=== PATIENT | male | born 1955 ===

== ENCOUNTER 2017-01-25 06:26 | Emergency (ER) | payer SELFPAY ==
[2017-01-25] MEDS ORDERED: ONDANSETRON HCL 4 MG/2 ML VIAL ONE ×2 (06:48→08:40)
[2017-01-25] MEDS ORDERED: NITROGLYCERIN 0.4 MG TAB.SUBL SUBLINGUAL ONE (06:48)
[2017-01-25 06:55] LABS: BASOPHIL# 0.1 X 10^3uL (0.0-0.1); BASOPHILS 0.6 % (0.0-2.0); EOSINOPHILS 2.1 % (0.0-6.0); EOSINOPHILS# 0.3 X 10^3uL (0.0-0.4); HEMOGLOBIN 14.9 g/dL (14.0-18.0); LYMPHOCYTES 14.3 % (20.0-40.0); LYMPHOCYTES# 1.7 X 10^3uL (0.8-3.8); MEAN CELL VOLUME 84.5 fL (80.0-100.0); MEAN CORPUS. HGB CONCENTRATION 34.6 g/dL (32.0-36.0); MEAN CORPUSCULAR HEMOGLOBIN 29.2 pg (29.0-35.0); MEAN PLATELET VOLUME 8.9 fL (7.4-10.4); MONOCYTES# 0.9 X 10^3uL (0.2-1.0); NEUTROPHILS# 9.1 X 10^3uL (2.6-6.7); PLATELET COUNT 239 X 10^3uL (130-440); RED BLOOD COUNT 5.09 X 10^6uL (4.20-6.10); RED CELL DISTRIBUTION WIDTH 12.9 % (11.5-14.5); WHITE BLOOD COUNT 12.1 X 10^3uL (3.9-10.7)
[2017-01-25 07:08] LABS: ALBUMIN 3.9 g/dL (3.5-5.0); ALKALINE PHOSPHATASE 58 U/L (38-126); ALT 36 U/L (21-72); AST 24 U/L (17-59); BILIRUBIN, TOTAL 0.4 mg/dL (0.2-1.3); BLOOD UREA NITROGEN 16 mg/dL (9-20); CALCIUM 8.7 mg/dL (8.4-10.2); CHLORIDE 109 mmol/L (98-107); CREATININE 0.9 mg/dL (0.7-1.3); EST GLOMERULAR FILTRATION RATE > 60 mL/min; GLUCOSE 115 mg/dL (70-100); LIPASE 76 U/L (23-300); POTASSIUM 3.7 mmol/L (3.5-5.1); SODIUM 140 mmol/L (137-145)
[2017-01-25 07:20] LABS: TROPONIN I < 0.012 ng/mL (0.00-0.034)
[2017-01-25] MEDS ORDERED: MORPHINE SULFATE 2 MG/ML SYR ONE (07:23)
[2017-01-25] MEDS ORDERED: MORPHINE SULFATE 4 MG/ML SYR ONE (08:40)
[2017-01-25] MEDS ORDERED: NITROGLYCERIN OINT 1 GM PACKET ONE (08:53)
[2017-01-25] MEDS ORDERED: NITROGLYCERIN 250 ML IV ONE (09:18)
--- NOTE | 2017-01-25 11:14 | US REPORT ---
EXAM:US ADB NOLAN INDICATION: Abdominal pain. Right upper quadrant discomfort. COMPARISON:None TECHNIQUE:A right upper quadrant scan was performed. FINDINGS: The liver appears normal in size and echogenicity and there is no intrahepatic ductal dilat ation. The common hepatic duct measures 4 mm and the common bile duct measures 5 mm. The gallbladder wall is mildly thickened at up to 5 mm. There is a 10 to 11 mm diameter stone in the region of the ga llbladder neck on initial images, but this eventually moved into the fundus with change in position. The patient does exhibit focal tenderness over the gallbladder fossa. There is no pericholecystic flu id. Visualized portions of the pancreas and inferior vena cava are unremarkable and the aorta is normal i n caliber throughout. The right kidney and aorta were not imaged. There is no ascites. Portal vein fl ow is patent and towards the liver. IMPRESSION: 1. Cholelithiasis, with the stone initially in the gallbladder neck but ultimately mobile with change in patient position. Mild wall thickening and sonographic Naik's sign, however, suggest the presen ce of acute cholecystitis. This could be confirmed with nuclear medicine HIDA scan. 2. Normal liver and bile ducts. This report was discussed with Dr. Willett of the [facility] emergency department on 01/25/2017 at 11:00 AM. Final Electronic Signature: This report was electronically signed by Nj Frye MD on 01/25/2017 11:11 AM. sabine /
--- NOTE | 2017-01-25 11:55 | ER NURSING DOCUMENTATION ---
Nurse's Notes [facility] Name:Gareth Santiago Age:61 yrs Sex:Male :1955 Arrival Date:01/25/2017 Time:06:26 BedTrauma C Private MD: Diagnosis:Abdominal Pain, Right Upper Quadrant;Chest Pain Presentation: 01/25 06:50 Presenting complaint: Patient states: CP that radiates to RUQ. Awoke from sleep. Denies mk4 SOB. Transition of care: Home. Asprin Given Given in ED 324 mg po. 06:50 Method Of Arrival: Walk In [facility] 06:50 Acuity: JOSE RAFAEL 3 4 11:49 AIR CAT ACTIVATION no other Not indicated. lp Triage Assessment: 06:52 General: Appears distressed, uncomfortable, Behavior is cooperative. Pain: Complains of mk4 pain in diaphragm and xyphoid area EENT: No deficits noted. Neuro: No deficits noted. Cardiovascular: Capillary refill < 3 seconds Heart tones present Pulses are all present. Reports Nausea Rhythm is regular Chest pain is described as mild, quality is heaviness, pressure, squeezing. Respiratory: Airway is patent Respiratory effort is even, unlabored, Respiratory pattern is regular, symmetrical, Breath sounds are clear. GI: No deficits noted. : No deficits noted. Derm: No deficits noted. Musculoskeletal: No deficits noted. Historical: - Allergies: Codeine; - Home Meds: 1. Zocor 5 mg oral tab Unknown once daily - Tetanus: < 10 years. - Immunization history: Pneumococcal vaccine status is unknown. - Ebola Screening: : No symptoms or risks identified at this time. . - Social history: Smoking status: Patient states was never smoker of tobacco. Screenin:14 Infectious Disease Risk None. Abuse screen: Unable to Obtain. Nutritional screening: No mk4 deficits noted. Assessment: 07:14 See Triage Assessment done by same RN. [facility] 07:50 General: Appears uncomfortable, Behavior is appropriate for age. Pain: Complains of lp pain in anterior aspect of left upper chest, diaphragm, right breast and left breast Pain does not radiate. Pain At worst was 7 out of 10 on a pain scale. Level that is acceptable is 3 out of 10 on a pain scale. Quality of pain is described as pressure, Pain began suddenly. Neuro: No deficits noted. EENT: No deficits noted. Cardiovascular: Capillary refill < 3 seconds Heart tones S1 S2 Pulses are all present. Reports chest pressure Denies lightheadedness, syncope, Rhythm is sinus rhythm Chest pain is described as diffuse, quality is pressure, is located in right left anterior chest wall has moved or radiated since the onset. Unable to elicit due to patient's condition. Respiratory: Breath sounds are clear bilaterally. GI: Abdomen is flat, non- distended Bowel sounds present X 4 quads. : No deficits noted. Derm: Skin is intact, is healthy with good turgor, Skin is dry, Skin is pink, warm & dry. Musculoskeletal: No deficits noted. Vital Signs: 06:30 BP 149 / 85; Pulse 63; Resp 16; Pulse Ox 96% on 2 lpm NC; lp 06:56 BP 126 / 80; Pulse 61; Resp 12; Temp 98.7; Pulse Ox 91% on R/A; Weight 74.84 kg; Height mk4 5 ft. 11 in. (180.34 cm); Pain 5/10; 07:00 BP 109 / 57; Pulse 63; Resp 16; Pulse Ox 94% on 2 lpm NC; lp 07:25 BP 109 / 57; Pulse 59; Resp 14; Pulse Ox 94% ; Pain 4/10; mk4 08:04 BP 110 / 58; Pulse 65; Resp 16; Pulse Ox 98% on 2 lpm NC; lp 08:38 BP 101 / 54; Pulse 67; Resp 14; Pulse Ox 93% on 2 lpm NC; lp 09:00 BP 112 / 50; Pulse 64; Resp 16; Pulse Ox 92% on 2 lpm NC; lp 09:17 BP 107 / 61; Pulse 73; Resp 16; Pulse Ox 95% on 2 lpm NC; lp 09:20 BP 102 / 55; Pulse 80; Resp 16; Pulse Ox 96% on 2 lpm NC; lp 09:25 BP 94 / 50; Pulse 69; Resp 16; Pulse Ox 95% on 2 lpm NC; lp 09:30 BP 111 / 59; Pulse 65; Resp 16; Pulse Ox 94% on 2 lpm NC; lp 09:35 BP 107 / 60; Pulse 62; Resp 16; Pulse Ox 95% on 2 lpm NC; lp 09:40 BP 118 / 57; Pulse 59; Resp 16; Temp 97.7(O); Pulse Ox 95% on 2 lpm NC; lp 09:43 BP 107 / 57; Pulse 55; Pulse Ox 94% on 2 lpm NC; lp 09:45 BP 111 / 58; Pulse 68; Resp 16; Pulse Ox 93% on 2 lpm NC; lp 09:50 BP 111 / 52; Pulse 68; Resp 16; Pulse Ox 93% on 2 lpm NC; lp 09:53 BP 98 / 53; Pulse 65; Pulse Ox 93% on 2 lpm NC; lp 10:25 BP 96 / 46; Pulse 67; Resp 16; Pulse Ox 93% on 2 lpm NC; lp 10:45 BP 120 / 45; Pulse 66; Resp 16; Pulse Ox 90% on R/A; lp 11:00 BP 99 / 47; Pulse 64; Resp 16; Pulse Ox 93% on R/A; lp 11:00 BP 107 / 56; Pulse 70; Resp 16; Pulse Ox 94% on R/A; lp 06:56 Body Mass Index 23.01 (74.84 kg, 180.34 cm) mk4 09:25 Nitro gtt started 5mcg/min lp 09:35 Nitro gtt 10 mcg/min incrased lp 09:43 Nitro gtt increased to 15mcg/min lp ED Course: 06:27 Patient arrived in ED. ama 06:41 Jesse Willett MD is Attending Physician. tl1 06:48 Port Xray Completed. ms 06:49 Shelia Smith is Primary Nurse. mk4 06:51 Triage completed. mk4 07:14 Bed in low position Call Light in Reach Gowned Side rails up x2. Family accompanied 4 patient. EKG done per protocol. Labs ordered per protocol. X-ray done. 07:14 Valuables Given to family. Cardiac Monitoring On for Nurse Monitoring only. Pulse Ox - mk4 RN Monitoring Only NIBP On - RN Monitoring Only. Noise minimized. Lights dimmed. Verbal reassurance given. Warm blanket given. 07:15 Labs drawn. EKG done. (by ED staff). Reviewed by Jesse Willett MD Portable x-ray done. mk4 Inserted peripheral IV: 20 gauge in right hand. Oxygen Oxygen administration via nasal cannula @ 2L/min. 09:10 Inserted peripheral IV: 20 gauge in left forearm. lp 10:09 EKG attached lp Administered Medications: 06:58 Drug: Aspirin Chewable Tablet 324 mg; Route: PO; mk4 07:13 Follow up: Response: No adverse reaction mk4 06:58 Drug: NS 0.9% 500 ml; Volume: 500 ml; Route: IV; Rate: bolus; Infused Over: 45 mins; mk4 Site: right hand; Delivery: [place] Tubing; 07:58 Follow up: IV Status: Completed infusion; IV Intake: 500ml lp 07:12 Drug: Zofran 4 mg; Route: IVP; Rate: 4 bolus; Infused Over: 2 mins; Site: right hand; mk4 07:24 Follow up: Response: No adverse reaction; Nausea is decreased mk4 07:12 Drug: Nitroglycerin 0.4 mg; {Note: Administered third dose at 0810.} Route: Sublingual; lp 07:25 Follow up: BP 109 / 57; Pulse 59 bpm; Resp 14 bpm; Pulse Ox 94% ; Pain 4/10 Adult mk4 08:20 Follow up: Response: Pain is decreased lp 07:20 Drug: morphine 2 mg; Route: IVP; Site: left antecubital; lp 08:00 Follow up: Response: Pain is decreased lp 08:40 Drug: Ondansetron 4 mg; Route: IVP; Infused Over: 2 mins; Site: right antecubital; lp 08:54 Follow up: Response: No adverse reaction; No change in condition; Nausea is decreased lp 08:44 Drug: Nitroglycerin 0.4 mg; Route: Sublingual; lp 08:55 Follow up: Response: Pain is decreased lp 08:44 Drug: Nitro-Bid Ointment 2 % 1 inches; Route: Transdermal; Site: anterior chest wall; lp 09:20 Follow up: Response: No adverse reaction; No change in condition lp 08:53 Drug: morphine 4 mg; Route: IVP; Infused Over: 2 mins; Site: right antecubital; lp 08:54 Follow up: Response: No adverse reaction; No change in condition; Pain is decreased lp 09:25 Drug: Nitro Drip - (Nitroglycerin 25 mg, D5W 250 ml); Route: IV; Rate: 5 mcg/min; Site: lp right antecubital; Delivery: Nitro tubing; 09:25 Follow up: Rate change 5 mcg/min lp 09:32 Drug: Nitro Drip - (Nitroglycerin 25 mg, D5W 250 ml); {Note: Rate titrated to lp 10mcg/min.} Route: IV; Rate: 10 mcg/min; Site: right antecubital; 09:35 Follow up: Rate change 10 mcg/min lp 09:42 Drug: Nitro Drip - (Nitroglycerin 25 mg, D5W 250 ml); Route: IV; Rate: 15 mcg/min; lp Site: right antecubital; 09:43 Follow up: Rate change 15 mcg/min lp 10:42 Follow up: Response: No adverse reaction; Pain is decreased; IV Status: Infusion lp discontinued 10:42 Follow up: IV Status: Infusion discontinued; IV Intake: 25ml lp Intake: 07:58 IV: 500ml; Total: 500ml. lp 10:42 IV: 25ml; Total: 525ml. lp Outcome: 11:00 Discharge ordered by . tl1 11:49 Discharged to home ambulatory. lp 11:49 Condition: improved 11:49 Instructed on discharge instructions, follow up and referral plans. medication usage. 11:55 Patient left the ED. lp 01/26 10:24 Discharge F/U Call: Spoke with: patient. Overall Care on a scale of 1-10 with 10 ma being the best care, you rate our care as: Other comments: States everything was perfect as far as care Pt has questions regarding diet Low fat instructions reviewed Pt states understanding Signatures: Candida Mijares RN RN ma Pavlish, Lena, RN RN lp Strickland, Mary ms Averdick, Andrew, Shelia Plunkett Tom, MD MD tl1
--- NOTE | 2017-01-25 11:55 | ER PHYSICIAN DOCUMENTATION ---
Physician Documentation [facility] Name:Gareth Santiago Age:61 yrs Sex:Male :1955 Arrival Date:01/25/2017 Time:06:26 BedTrauma C Private MD: Jesse Collins Disposition: 01/25 07:15 Critical Care: not applicable. tl1 Disposition: 01/25/17 11:00 Discharged to Home/Self Care. Impression: Abdominal Pain, Right Upper Quadrant, Chest Pain. - Condition is Good. - Discharge Instructions: ABDOMINAL PAIN, Unkown Cause, (Male), CHEST PAIN, Uncertain Cause, Nitroglycerin - ANGINA, Stable. - Prescriptions for nitroglycerin 0.4 mg Sublingual tablet, sublingual - place 1 tablet by BUCCAL route every 5 minutes not to exceed 3 tablets in a 15-minute period; 1 bottle. - Medical Reconciliation form form. - Follow up: Private Physician; When: 4- 6 days; Reason: Recheck today's complaints, Continuance of care. - Problem is new. - Symptoms have improved. - Notes: Take a baby aspirin a day. Use nitroglycerine under your tongue for any recurrence of chest pain Your pain could be due a gallstone and seems less likely to be related to your heart, but you should get some kind of cardiac stress test some time in the next 1-2 weeks. EAT A VERY LOW FAT DIET, FOR NOW, UNTIL THE DEFINITIVE CAUSE OF YOUR PAIN IS FOUND. FATTY MEALS COULD AGGRAVATE YOUR GALL BLADDER. HPI: 06:35 This 61 yrs old Unknown Male presents to ER with complaints of Chest Pain. tl1 06:35 The patient or guardian reports chest pain that is located primarily in the RUQ and tl1 right lower pectoral area. Risk factors for coronary artery disease include: This patient has a family history of coronary artery disease. This patient has a history of high cholesterol. They arrived from [place] 4 days ago. 3 days ago he skied pretty hard at [employer]. 2 nights ago in bed he had a brief episode of anxiety associated with dyspnea. He had never had this before. He said he purposely started thinking pleasant thoughts and went back to sleep. Last night he had pizza for dinner and was fine. About 4 AM he awakened, turning over in bed and noted some RUQ/Right lower pectoral pain/pressure that was 6-7/10, associated with nausea and a little vomiting and diaphoresis and perhaps slight dyspnea. No palpitations. That has persisted for about 2-2.5 hrs and is present on arrival. He has a h/o high cholesterol with 2 brothers from MIs at age 58 and 64. He is normally pretty active; lifts wts, runs, walks and rides a recumbent bicycle.. Historical: - Allergies: Codeine; - Home Meds: 1. Zocor 5 mg oral tab Unknown once daily - Tetanus: < 10 years. - Immunization history: Pneumococcal vaccine status is unknown. - Ebola Screening: : No symptoms or risks identified at this time. . - Social history: Smoking status: Patient states was never smoker of tobacco. ROS: 07:03 Cardiovascular: Positive for chest pain, Negative for edema, orthopnea, palpitations, tl1 paroxysmal nocturnal dyspnea. 07:03 Abdomen/GI: Positive for nausea, vomiting, Negative for hematemesis, black/tarry stool, rectal bleeding. 07:03 All other systems are negative. Exam: 07:04 Constitutional: This is a well developed, well nourished patient who is awake, alert, tl1 and in no acute distress. Head/Face: Normocephalic, atraumatic. Eyes: Pupils equal round and reactive to light, extra-ocular motions intact. Lids and lashes normal. Conjunctiva and sclera are non-icteric and not injected. Cornea within normal limits. Periorbital areas with no swelling, redness, or edema. ENT: Nares patent. No nasal discharge, no septal abnormalities noted. Tympanic membranes are normal and external auditory canals are clear. Oropharynx with no redness, swelling, or masses, exudates, or evidence of obstruction, uvula midline. Mucous membranes moist. Neck: Trachea midline, no thyromegaly or masses palpated, and no cervical lymphadenopathy. Supple, full range of motion without nuchal rigidity, or vertebral point tenderness. No Meningismus. 07:04 Chest/axilla: Normal chest wall appearance and motion. Nontender with no deformity. tl1 No lesions are appreciated. 07:04 Cardiovascular: Rate: normal, Rhythm: regular, Pulses: no pulse deficits are appreciated, Heart sounds: normal, Edema: is not appreciated, JVD: is not appreciated. 07:04 Respiratory: the patient does not display signs of respiratory distress, Respirations: normal, Breath sounds: are normal, no rales, rhonchi, no stridor, no wheezing. 07:04 Abdomen/GI: Inspection: abdomen appears normal, Palpation: soft, mild abdominal tenderness, in the right upper quadrant. 07:04 Back: CVA tenderness, is absent. 07:04 Skin: Exam negative for acute changes. Vital Signs: 06:30 BP 149 / 85; Pulse 63; Resp 16; Pulse Ox 96% on 2 lpm NC; lp 06:56 BP 126 / 80; Pulse 61; Resp 12; Temp 98.7; Pulse Ox 91% on R/A; Weight 74.84 kg; Height mk4 5 ft. 11 in. (180.34 cm); Pain 5/10; 07:00 BP 109 / 57; Pulse 63; Resp 16; Pulse Ox 94% on 2 lpm NC; lp 07:25 BP 109 / 57; Pulse 59; Resp 14; Pulse Ox 94% ; Pain 4/10; mk4 08:04 BP 110 / 58; Pulse 65; Resp 16; Pulse Ox 98% on 2 lpm NC; lp 08:38 BP 101 / 54; Pulse 67; Resp 14; Pulse Ox 93% on 2 lpm NC; lp 09:00 BP 112 / 50; Pulse 64; Resp 16; Pulse Ox 92% on 2 lpm NC; lp 09:17 BP 107 / 61; Pulse 73; Resp 16; Pulse Ox 95% on 2 lpm NC; lp 09:20 BP 102 / 55; Pulse 80; Resp 16; Pulse Ox 96% on 2 lpm NC; lp 09:25 BP 94 / 50; Pulse 69; Resp 16; Pulse Ox 95% on 2 lpm NC; lp 09:30 BP 111 / 59; Pulse 65; Resp 16; Pulse Ox 94% on 2 lpm NC; lp 09:35 BP 107 / 60; Pulse 62; Resp 16; Pulse Ox 95% on 2 lpm NC; lp 09:40 BP 118 / 57; Pulse 59; Resp 16; Temp 97.7(O); Pulse Ox 95% on 2 lpm NC; lp 09:43 BP 107 / 57; Pulse 55; Pulse Ox 94% on 2 lpm NC; lp 09:45 BP 111 / 58; Pulse 68; Resp 16; Pulse Ox 93% on 2 lpm NC; lp 09:50 BP 111 / 52; Pulse 68; Resp 16; Pulse Ox 93% on 2 lpm NC; lp 09:53 BP 98 / 53; Pulse 65; Pulse Ox 93% on 2 lpm NC; lp 10:25 BP 96 / 46; Pulse 67; Resp 16; Pulse Ox 93% on 2 lpm NC; lp 10:45 BP 120 / 45; Pulse 66; Resp 16; Pulse Ox 90% on R/A; lp 11:00 BP 99 / 47; Pulse 64; Resp 16; Pulse Ox 93% on R/A; lp 11:00 BP 107 / 56; Pulse 70; Resp 16; Pulse Ox 94% on R/A; lp 06:56 Body Mass Index 23.01 (74.84 kg, 180.34 cm) mk4 09:25 Nitro gtt started 5mcg/min lp 09:35 Nitro gtt 10 mcg/min incrased lp 09:43 Nitro gtt increased to 15mcg/min lp MDM: 06:41 Patient medically screened. tl1 07:07 Differential diagnosis: acute myocardial infarction, acute pericarditis, anxiety, tl1 coronary artery disease chest wall pain, cholecystitis, Cholelithiasis costochondritis, esophagitis, gastritis. Patient took aspirin in the Emergency Department. The patient's deep vein thrombosis risk score was calculated as follows: Total Score: 0. This patient was found to be at low risk for a deep vein thrombosis by using the Well's assessment criteria. Data reviewed: vital signs, nurses notes, EMS record, [facility] records, lab test result(s), EKG, and as a result, I will. Data interpreted: monitoring analyst: Pulse oximetry:. Test interpretation: by ED physician or midlevel provider: plain radiologic studies, ECG. Counseling: I had a detailed discussion with the patient and/or guardian regarding: the historical points, exam findings, and any diagnostic results supporting the discharge/admit diagnosis, lab results, radiology results. ECG:. 07:19 Patient medically screened. tl1 09:12 ED course: SLNTG x 1 and 2 mg morphine gave complete pain relief initially. Pain tl1 recurred about 90 min later. Repeat EKG was again completely normal. Morphine and SLNTG again caused pain to resolve. Recurrent londono at about 9 AM led to 1" of NTP, FOLLOWED by a NTG gtt. Spoke with Dr Toledo who agreed to consult on patient and consider stress echo. I have ordered also, a RUQUS AT 0900.. 10:09 EKG attached lp 11:00 Patient did not receive fibrinolytic due to. tl1 11:00 Special discussion: Based on the patient's history, exam, and Dx evaluation, there is tl1 no indication for emergent intervention or inpatient Tx. It is understood by the patient/guardian that if the Sx's persist or worsen they need to return immediately for re-evaluation. I discussed with the patient/guardian in detail that at this point there is no indication for admission to the hospital. It is understood, however, that if the symptoms persist or worsen the patient needs to return immediately for re-evaluation. I told him it is possible that he has early cholecystitis and that he needs to f/u with his PCP soon after his return . 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 He should take a baby aspirin a day for now, and he was sent home with a bottle of SLNTG.. 01/25 06:57 Order name: CBC AUTO DIF, MDIF/RMOR IF IND; Complete Time: 08:26 EDMS 01/25 07:15 Interpretation: WHITE BLOOD COUNT 12.1; HEMOGLOBIN 14.9; HEMATOCRIT 43.0; PLATELET tl1 COUNT 239; NEUTROPHILS 76.0. 01/25 07:15 Order name: BASIC METABOLIC PANEL; Complete Time: 08:26 EDMS 01/25 07:16 Interpretation: SODIUM 140; POTASSIUM 3.7; CHLORIDE 109; CARBON DIOXIDE 22; GLUCOSE tl1 115; BLOOD UREA NITROGEN 16; CREATININE 0.9. 01/25 07:15 Order name: MAGNESIUM; Complete Time: 08:26 EDMS 01/25 07:16 Interpretation: Normal: MAGNESIUM 2.0. tl01/25 07:15 Order name: HEPATIC PANEL; Complete Time: 08:26 EDMS 01/25 07:15 Order name: LIPASE; Complete Time: 08:26 EDMS 01/25 07:16 Interpretation: Normal: LIPASE 76. tl01/25 07:20 Order name: DDIMER; Complete Time: 08:26 EDMS 01/25 07:21 Order name: TROPONIN I; Complete Time: 08:26 EDMS 01/25 09:21 Order name: TROPONIN I; Complete Time: 10:24 EDMS 01/25 09:42 Interpretation: Normal: TROPONIN I < 0.012. tl1 01/25 11:16 Order name: US EMMANUEL TEJEDA [id number]; Complete Time: 18:18 EDMS 01/25 06:48 Order name: 12-lead EKG; Complete Time: 07:25 tl1 01/25 06:48 Order name: Iv Saline Lock; Complete Time: 07:25 tl1 01/25 06:48 Order name: Place Patient On Monitor; Complete Time: 07:25 tl1 01/25 06:48 Order name: Pulse Ox Continuous; Complete Time: 07:25 tl1 01/25 08:20 Order name: EKG - 12 Lead; Complete Time: 08:20 lp EC:34 Rate is 62 beats/min. Rhythm is regular, Normal Sinus Rhythm with No ectopy. QRS [place] tl1 is Normal. NV interval is normal at 155 msec. QRS interval is normal at 101 msec. QT interval is normal at 399 msec. No Q waves. T waves are Normal. No ST changes noted. Clinical impression: Normal ECG. Interpreted by me. Reviewed by me. Dispensed Medications: 06:58 Drug: Aspirin Chewable Tablet 324 mg; Route: PO; mk4 07:13 Follow up: Response: No adverse reaction mk4 06:58 Drug: NS 0.9% 500 ml; Volume: 500 ml; Route: IV; Rate: bolus; Infused Over: 45 mins; mk4 Site: right hand; Delivery: [place] Tubing; 07:58 Follow up: IV Status: Completed infusion; IV Intake: 500ml lp 07:12 Drug: Zofran 4 mg; Route: IVP; Rate: 4 bolus; Infused Over: 2 mins; Site: right hand; mk4 07:24 Follow up: Response: No adverse reaction; Nausea is decreased mk4 07:12 Drug: Nitroglycerin 0.4 mg; {Note: Administered third dose at 0810.} Route: Sublingual; lp 07:25 Follow up: BP 109 / 57; Pulse 59 bpm; Resp 14 bpm; Pulse Ox 94% ; Pain 4/10 Adult mk4 08:20 Follow up: Response: Pain is decreased lp 07:20 Drug: morphine 2 mg; Route: IVP; Site: left antecubital; lp 08:00 Follow up: Response: Pain is decreased lp 08:40 Drug: Ondansetron 4 mg; Route: IVP; Infused Over: 2 mins; Site: right antecubital; lp 08:54 Follow up: Response: No adverse reaction; No change in condition; Nausea is decreased lp 08:44 Drug: Nitroglycerin 0.4 mg; Route: Sublingual; lp 08:55 Follow up: Response: Pain is decreased lp 08:44 Drug: Nitro-Bid Ointment 2 % 1 inches; Route: Transdermal; Site: anterior chest wall; lp 09:20 Follow up: Response: No adverse reaction; No change in condition lp 08:53 Drug: morphine 4 mg; Route: IVP; Infused Over: 2 mins; Site: right antecubital; lp 08:54 Follow up: Response: No adverse reaction; No change in condition; Pain is decreased lp 09:25 Drug: Nitro Drip - (Nitroglycerin 25 mg, D5W 250 ml); Route: IV; Rate: 5 mcg/min; Site: lp right antecubital; Delivery: Nitro tubing; 09:25 Follow up: Rate change 5 mcg/min lp 09:32 Drug: Nitro Drip - (Nitroglycerin 25 mg, D5W 250 ml); {Note: Rate titrated to lp 10mcg/min.} Route: IV; Rate: 10 mcg/min; Site: right antecubital; 09:35 Follow up: Rate change 10 mcg/min lp 09:42 Drug: Nitro Drip - (Nitroglycerin 25 mg, D5W 250 ml); Route: IV; Rate: 15 mcg/min; lp Site: right antecubital; 09:43 Follow up: Rate change 15 mcg/min lp 10:42 Follow up: Response: No adverse reaction; Pain is decreased; IV Status: Infusion lp discontinued 10:42 Follow up: IV Status: Infusion discontinued; IV Intake: 25ml lp Signatures: Jazmyne Tilley RN RN lp King, Melody mk4 Jesse Willett MD MD tl1
--- NOTE | 2017-01-25 13:48 | CONSULTATION ---
DATE OF CONSULTATION: 01/25/17 CONSULTING PHYSICIAN: John Willett MD RN MOBILE: Machelle Toledo MD REASON FOR CONSULTATION: Chest pain. HISTORY OF PRESENT ILLNESS: The patient is a 61-year-old male with a history of hyperlipidemia, seen this morning in the [facility] Emergency Department for cardiovascular evaluation. He is accompanied by his . They were visiting from [place], [place]. He was awakened overnight with right upper quadrant pain which was severe in nature. This was associated with nausea and vomiting. He also had some discomfort described as heaviness in his chest. Because of these symptoms, he came into the Emergency Department. Records and workup have been reviewed personally. He began feeling better after he was given Morphine as well as Nitroglycerin. He is currently resting comfortably and is pain free. He has no prior known coronary artery disease. He does have a family history of coronary artery disease. His father had myocardial infarction in his early 50s. He has an older brother who of a heart attack in his late 50s. Troponin levels have been normal x2. He has had 2 ECGs reviewed by me which demonstrate sinus rhythm with no acute ST changes. He had a right upper quadrant ultrasound which I told documents a stone in the gallbladder which was in the neck of the duct. MEDICATIONS Simvastatin. He does not take aspirin daily. SOCIAL HISTORY: He is not a smoker. He drinks significant amounts of alcohol. He is generally physically active. PAST MEDICAL HISTORY: Unremarkable. PHYSICAL EXAMINATION VITAL SIGNS: Stable. NECK: Neck veins not elevated, carotid upstrokes normal bilaterally. No carotid bruits. CHEST: Lungs clear to auscultation. CARDIAC: S1 and S2 normal. No LV, RV or P lift. No rub. ABDOMEN: Soft. Liver edge is not palpable. He does have a positive [place] sign with inspiration and discomfort in the right upper quadrant. EXTREMITIES: No edema. Distal pulses are equal and palpable in upper and lower extremity. IMAGING: I am told chest x-ray is unremarkable. LABORATORY DATA: White blood cell count 12.1. Troponin less than 0.012 twice. Potassium 3.9, creatinine 0.9. AST/ALT were normal. Bilirubin is normal. Lipase 76. D-Dimer 215 which is within normal limits. IMPRESSION 1. Right upper quadrant discomfort likely secondary to gallstone. 2. Hyperlipidemia on Simvastatin. 3. Family history of coronary artery disease. RECOMMENDATION: The patient is currently resting comfortably. He has had 2 normal troponin levels and 2 normal EKGs. Symptoms are most consistent with gallbladder related discomfort, other than unstable angina. We discussed stress testing this morning which was recommended by me. They are concerned as they are paying for their pay out of pocket and asked this only be done if I thought it was really necessary. I told them as noted above, my suspicion is that this is gallbladder related pain, but coronary artery disease cannot be completely excluded. I do think they are safe for discharge with close cardiology follow up. Given that he is pain free and has had negative biomarkers and a normal EKG. He will follow up with a Cardiology whom he knows in [place]. We discussed that if he has recurrent discomfort, he should seek medical care probably. They are in agreement with this plan and comfortable with it. All questions were answered. Thank you for asking us to participate in the care of this very nice patient. TRAN
--- NOTE | 2017-01-26 13:48 | RADIOLOGY REPORT ---
A limited single portable view of the chest, without prior films for comparison , demonstrates the heart, vessels and lungs to be unremarkable. No infiltrate, fluid or pneumothorax is seen. IMPRESSION: Unremarkable limited single portable view of the chest. MTDD
== END 2017-01-25 11:55 | disposition home or self-care (01) ==
LOC: ER 06:26
DX: R10.11 Right upper quadrant pain (principal); R07.89 Other chest pain; R11.2 Nausea with vomiting, unspecified; E78.00 Pure hypercholesterolemia, unspecified; Z82.49 Family history of ischemic heart disease and other diseases of the circulatory system; Z79.899 Other long term (current) drug therapy
CPT/HCPCS: 36415; 71010; 76705; 80048; 80076; 83690; 83735; 84484; 85025; 85379; 93005; 96361; 96365; 96375; 96376; 99285; J2270; J2405